=== PATIENT | female | born 1935 | race Caucasian/White ===

== ENCOUNTER 2016-09-27 08:43 | Emergency (ER) | payer OTHER ==
[~2016-09-27] VITALS: Ht 152.4 cm; Wt 54.4 kg
[~2016-09-27 08:43] MED LIST: ANTIVERT25 MG PO; CEPHALEXIN500 M1 PO; COMBIVENT1 ARO IH; LOMOTIL 0.025 M1 TA1 PO; MEDROL DOSEPAK4 MG PO; SYNTHROID,LEVO75 MCG PO; ZITHROMAX Z PA250 MG PO
[2016-09-27] MEDS ORDERED: ASPIRIN CHEWABL81 MG PO (08:51)
[2016-09-27 09:22] LABS: BASO # 0.1 10*3/uL (0.0-0.1); BASO % 3.1 % (0.0-1.0); EOS # 0.1 10*3/uL (0.0-0.4); EOS % 2.2 % (1.0-4.0); HEMATOCRIT 37.9 % (37.0-47.0); HEMOGLOBIN 11.8 g/dl (12.0-16.0); LYMPH % 29.6 % (27.0-41.0); MEAN CELL VOLUME 87.7 fl (81.0-99.0); MEAN CORPUSCULAR HGB 27.3 pg (27.0-31.0); MEAN CORPUSCULAR HGB CONC 31.1 g/dl (33.0-37.0); MEAN PLATELET VOLUME 11.3 fl (9.6-12.3); MONO # 0.4 10*3/uL (0.1-1.0); MONO % 11.2 % (3.0-9.0); NEUT # 1.7 10*3/uL (2.3-7.9); NEUT % 53.6 % (47.0-73.0); PLATELET COUNT AUTOMATED 201 10*3/uL (130-400); RED BLOOD COUNT 4.32 10*6/uL (4.10-5.10); RED CELL DISTRI WIDTH 13.4 % (0-14.5); WHITE BLOOD COUNT 3.2 10*3/uL (4.8-10.8)
[2016-09-27 09:30] LABS: PROTHROMBIN TIME 10.6 SECONDS (9.0-12.4)
[2016-09-27 09:40] LABS: ALBUMIN 3.4 gm/dl (3.1-4.5); ALKALINE PHOSPHATASE 76 U/L (45-117); BILIRUBIN, TOTAL 0.4 mg/dl (0.2-1.0); BUN 15 mg/dl (7-24); C-REACTIVE PROTEIN < 0.29 MG/DL (0-0.3); CARBON DIOXIDE 28 mmol/L (21-32); CHLORIDE 106 mmol/L (98-107); CKMB 1.4 ng/ml (0.5-3.6); CPK 63 U/L (26-192); EST GLOM FILT AFRICAN AMERICAN > 60 ml/min; GLUCOSE 82 mg/dL (65-99); MAGNESIUM 2.3 mg/dL (1.5-2.1); POTASSIUM 3.5 mmol/L (3.5-5.1); SGOT/AST 14 IU/L (3-35); SGPT/ALT 13 U/L (12-78); SODIUM 142 mmol/L (136-145); TOTAL PROTEIN 7.2 gm/dL (6.4-8.2); TROPONIN I < 0.015 ng/ml (<0.045)
[2016-09-27 10:09] LABS: BILIRUBIN NEGATIVE (NEGATIVE); BLOOD TRACE-INTACT (NEGATIVE); CLARITY SL CLOUDY (CLEAR); COLOR YELLOW (YELLOW); GLUCOSE NEGATIVE (NEGATIVE); KETONE NEGATIVE (NEGATIVE); LEUKO ESTERASE NEGATIVE (NEGATIVE); NITRITE NEGATIVE (NEGATIVE); PH 5.5 (5.0-9.0); PROTEIN NEGATIVE (NEGATIVE); UROBILINOGEN 0.2 E.U./dl (0.2-1.0)
[2016-09-27 10:29] LABS: BACTERIA 1+; MUCOUS 1+; URINE REFLEX COMMENT NO (NO); WAXY CAST TNTC
[2016-09-27] MEDS ORDERED: MOTION SICKNESS25 MG PO (11:05)
[2016-09-27 11:18] LABS: LA>2 REFLEX 2 HR DRAW NOW
[2016-09-27 11:27] VITALS: BP 141/69
== END 2016-09-27 11:32 | disposition home or self-care (01) ==
LOC: ED 08:43
PROVIDERS: Internal Medicine
DX: R42 Dizziness and giddiness (principal); Z79.82 Long term (current) use of aspirin

== ENCOUNTER → 2017-12-07 | Outpatient (CLI) | payer OTHER ==
[~2017-12-07] MED LIST changes: +ASPIRIN CHEWABL81 MG PO; +MOTION SICKNESS25 MG PO
== END | disposition home or self-care (01) ==
LOC: RAD 17:05
DX: I10 Essential (primary) hypertension (principal); R42 Dizziness and giddiness

== ENCOUNTER 2018-02-23 12:52 | Emergency (ER) | payer OTHER ==
[~2018-02-23] VITALS: Ht 165.1 cm; Wt 56.2 kg
--- NOTE | ~2018-02-23 | EKG ---
[place], [place] ELECTROCARDIOGRAM REPORT NAME: ARIADNE HUANG UNIT #: [id number] ROOM: DOCTOR: EPIPHANY DRAFT REPORT BIRTHDATE: [birth year] 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
[2018-02-23 14:19] VITALS: BP 140/70
[2018-02-23 15:01] LABS: BASO % 0.6 % (0.0-1.0); EOS % 0.2 % (1.0-4.0); HEMATOCRIT 35.6 % (37.0-47.0); HEMOGLOBIN 11.6 g/dl (12.0-16.0); LYMPH # 0.9 10*3/uL (1.3-4.4); LYMPH % 14.8 % (27.0-41.0); MEAN CORPUSCULAR HGB CONC 32.6 g/dl (33.0-37.0); MEAN PLATELET VOLUME 10.5 fl (9.6-12.3); MONO # 0.5 10*3/uL (0.1-1.0); MONO % 7.3 % (3.0-9.0); NEUT # 4.8 10*3/uL (2.3-7.9); NEUT % 76.9 % (47.0-73.0); PLATELET COUNT AUTOMATED 177 10*3/uL (130-400); RED CELL DISTRI WIDTH 13.3 % (0-14.5); WHITE BLOOD COUNT 6.3 10*3/uL (4.8-10.8)
[2018-02-23 15:14] LABS: ACT PARTIAL THROMBO TIME 23.6 SECONDS (19.5-32.1)
[2018-02-23 15:16] LABS: ALBUMIN 3.2 gm/dl (3.1-4.5); ALKALINE PHOSPHATASE 65 U/L (45-117); BUN 20 mg/dl (7-24); CHLORIDE 99 mmol/L (98-107); CREATININE 0.86 mg/dL (0.55-1.02); LIPASE 236 U/L (73-393); POTASSIUM 3.4 mmol/L (3.5-5.1); SGOT/AST 13 IU/L (3-35); SGPT/ALT 11 U/L (12-78); SODIUM 139 mmol/L (136-145); TOTAL PROTEIN 6.9 gm/dL (6.4-8.2)
[2018-02-23 15:21] LABS: TROPONIN I < 0.015 ng/ml (<0.045)
[2018-02-23 16:13] LABS: BILIRUBIN NEGATIVE (NEGATIVE); BLOOD NEGATIVE (NEGATIVE); CLARITY CLEAR (CLEAR); COLOR YELLOW (YELLOW); GLUCOSE NEGATIVE (NEGATIVE); KETONE NEGATIVE (NEGATIVE); LEUKO ESTERASE TRACE (NEGATIVE); NITRITE NEGATIVE (NEGATIVE); PH 5.5 (5.0-9.0); UROBILINOGEN 0.2 E.U./dl (0.2-1.0)
== END 2018-02-23 16:38 | disposition home or self-care (01) ==
LOC: ED 12:52
PROVIDERS: Nurse Practitioner Family
DX: R42 Dizziness and giddiness (principal); R79.1 Abnormal coagulation profile; Z79.82 Long term (current) use of aspirin

== ENCOUNTER 2018-04-18 14:59 | Inpatient (IN) | payer OTHER ==
[~2018-04-18] VITALS: Ht 152.4 cm; Wt 65.5 kg
--- NOTE | ~2018-04-18 | O ---
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 She has had rectal bleeding, bright blood per rectum and we have been concerned. PROCEDURE: Today's procedure therefore is panendoscopy and colonoscopy. PREMEDICATION: Propofol. SCOPE: Olympus forward-viewing gastroscope Q10 video. REPORT: After putting the patient in left lateral position and application of lubricant to the scope, the scope was introduced. Thereafter, under direct visualization, I advanced through the length of esophagus without difficulty. Esophagus, cervical, thoracic distally carefully examined. Gastric pouch was entered. Moderate size hiatal hernia was noticed. The stomach itself anatomically was axially rotated and therefore direct access from lesser curvature to the antrum is impractical and appropriate maneuvers was done. Antral biopsy obtained. GI reflection of the scope confirmed the findings. Air was suctioned out. The patient was extubated, tolerated the procedure well. IMPRESSION: Hiatal hernia, gastritis, axially rotated stomach access, moderate size hiatal hernia. PLAN AND DISCUSSION: There is no active bleeding in upper GI. Therefore, nonsteroidal anti-inflammatory was not playing an acute role in this. We are going to continue with PPI for symptomatology of dyspepsia. We are going to proceed with colonoscopy. GASTROENDOSCOPIC REPORT The patient has presented with lower GI bleed. Bright blood per rectum. The patient with a history of colonic carcinoma in the past, 2 decades ago, detail unknown. Today's procedure part of investigation is colonoscopy plus biopsy plus photographic series. PREMEDICATION: Propofol. SCOPE: Olympus forward-viewing colonoscope 10L video. REPORT: After putting the patient in left lateral position and application of lubricant to rectal pouch and digital examination, scope was introduced; thereafter, under direct visualization, advanced through the length of colon. [place], [place] OPERATIVE NOTE NAME: ARIADNE HUANG UNIT #: [id number] ROOM: 411 DOCTOR: NICHELLE LUIS,GLEN BIRTHDATE: [birth year] As I approached approximately 10 cm from rectal pouch there is a polypoid lesion, which appears to be pendular, broad-based with large fungating mushroomed out lesion, which is a part of the polyp and covering semi-lumen of the colon at that level. The lesion may harbor in situ carcinoma and it is large non polypectomy candidate through the snaring, multiple biopsies; however, obtained after photographic series. Scope was negotiated beyond this area. Diverticulosis noticed numerous fecaliths were noticed that were mobile. Detail anatomy beyond this area could not be safely pursued due to the chance of possible perforation. Therefore, the patient extubated, tolerated the procedure well. 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 PLAN AND DISCUSSION: We will make arrangement for CT scan to make sure this is not a true metastatic lesion. Otherwise, appropriate arrangements for rectal mass removal is going to be organized to surgery. GLEN STEWARD MD CM:OPRECORD:OPERATIVE NOTE 1726 1800 GLEN STEWARD MD 04/19/18 1801 interface
--- NOTE | ~2018-04-18 | CON ---
[place], [place] REPORT OF CONSULTATION NAME: ARIADNE HUANG UNIT #: [id number] ROOM: 411 DOCTOR: GLEN STEWARD MD BIRTHDATE: [birth year] DOS: 04/19/2018 GASTROENDOSCOPIC CONSULTATION HISTORY OF PRESENT ILLNESS: An 82-year-old gentle lady who has presented with multiple problems, among which was blood per rectum. The patient with a history of colonic cancer 20 years ago and she has been on the chemoradiation resection. History details are not available to me. However NOTE: DICTATION ENDS HERE. GLEN STEWARD MD CM:CONSTR:REPORT OF CONSULTATION 1719 04/20/18 0157 interface
--- NOTE | ~2018-04-18 | CON ---
[place], [place] REPORT OF CONSULTATION NAME: ARIADNE HUANG UNIT #: [id number] ROOM: 411 DOCTOR: GLEN STEWARD MD BIRTHDATE: [birth year] DOS: 04/19/2018 GASTROENDOSCOPIC REPORT HISTORY OF PRESENT ILLNESS: This is an 82-year-old patient who presented with multiple medical issues among which has been hematochezia and abdominal pain associated with cramp. We are concerned about a white blood cell 4.6, H and H of 11 and 36. Comprehensive metabolic panel, electrolyte balance, liver function test normal. H and H remained approximately the same. Comprehensive metabolic did not nearly change, borderline electrolyte balance was noticed. Thyroid studies normal. INR 1.1. PAST MEDICAL HISTORY: Vertigo. SOCIAL HISTORY: Social alcohol consumer. FAMILY HISTORY: Noncontributory. ALLERGIES: No known medications. HOME MEDICATIONS: Aspirin. REVIEW OF SYSTEMS: HEENT: Denies double vision or blurred vision. RESPIRATORY: Denies acute shortness of breath. CARDIOVASCULAR: Denies chest pain. DIGESTIVE SYSTEM: Nausea, vomiting, abdominal cramp or hematochezia. PHYSICAL EXAMINATION: VITAL SIGNS: Stable. HEENT: Head normocephalic, nontraumatic. Eyes: Pupils round and reactive. Mouth and buccal mucosa benign. NECK: Supple, no thyromegaly, no cervical lymphadenopathy. CHEST: Symmetric anatomy, no wheeze, no rhonchi. HEART: Normal sinus rhythm, no gallop, no murmur. ABDOMEN: Soft. No hepato-organomegaly. EXTREMITIES: No cyanosis, no pedal edema. NEUROLOGIC: Alert, fully oriented to time, place, and person. LABORATORY DATA: Reviewed, records reviewed. IMPRESSION: Presentation of acute abdominal pain throughout the afternoon. Abdominal cramp associated with bloody BM, history of nonsteroidal anti-inflammatory intake, vertigo, all consistent with active GI bleed. Concern is if the patient has ischemic bowel, otherwise differential as expected. They are going to keep any prophylactic anticoagulants untill the information regarding definition of etiology of GI bleed has been cleared. [place], [place] REPORT OF CONSULTATION NAME: ARIADNE HUANG UNIT #: [id number] ROOM: 411 DOCTOR: GLEN STEWARD MD BIRTHDATE: [birth year] GLEN STEWARD MD CM:CONSTR:REPORT OF CONSULTATION 1300 04/19/18 1944 interface
[2018-04-18 16:16] LABS: BASO # 0.1 10*3/uL (0.0-0.1); BASO % 1.1 % (0.0-1.0); EOS % 0.9 % (1.0-4.0); HEMOGLOBIN 11.3 g/dl (12.0-16.0); LYMPH # 1.1 10*3/uL (1.3-4.4); MEAN CELL VOLUME 92.1 fl (81.0-99.0); MEAN CORPUSCULAR HGB 28.9 pg (27.0-31.0); MEAN CORPUSCULAR HGB CONC 31.4 g/dl (33.0-37.0); MEAN PLATELET VOLUME 10.9 fl (9.6-12.3); MONO # 0.4 10*3/uL (0.1-1.0); MONO % 8.6 % (3.0-9.0); NEUT % 66.2 % (47.0-73.0); PLATELET COUNT AUTOMATED 168 10*3/uL (130-400); RED BLOOD COUNT 3.91 10*6/uL (4.10-5.10); RED CELL DISTRI WIDTH 13.8 % (0-14.5); WHITE BLOOD COUNT 4.6 10*3/uL (4.8-10.8)
[2018-04-18 16:32] LABS: ALBUMIN 3.2 gm/dl (3.1-4.5); ALKALINE PHOSPHATASE 68 U/L (45-117); BUN 17 mg/dl (7-24); CHLORIDE 110 mmol/L (98-107); POTASSIUM 4.4 mmol/L (3.5-5.1); SGOT/AST 14 IU/L (3-35); SGPT/ALT 15 U/L (12-78); SODIUM 145 mmol/L (136-145); TOTAL PROTEIN 6.6 gm/dL (6.4-8.2)
[2018-04-18 20:00] VITALS: BP 159/72
[2018-04-19] VITALS (9 sets, daily range): BP systolic 128–162; BP diastolic 59–90
[2018-04-19 02:23] LABS: BILIRUBIN NEGATIVE (NEGATIVE); BLOOD NEGATIVE (NEGATIVE); CLARITY CLEAR (CLEAR); COLOR YELLOW (YELLOW); GLUCOSE NEGATIVE (NEGATIVE); KETONE NEGATIVE (NEGATIVE); LEUKO ESTERASE NEGATIVE (NEGATIVE); NITRITE NEGATIVE (NEGATIVE); PH 6.5 (5.0-9.0); SPECIFIC GRAVITY <= 1.005 (1.005-1.030); UROBILINOGEN 0.2 E.U./dl (0.2-1.0)
[2018-04-19 02:44] LABS: BACTERIA TRACE; RBC 0-2 rbc/hpf (0-2)
[2018-04-19 06:26] LABS: BASO # 0.1 10*3/uL (0.0-0.1); BASO % 1.2 % (0.0-1.0); EOS # 0.1 10*3/uL (0.0-0.4); EOS % 0.9 % (1.0-4.0); HEMATOCRIT 37.1 % (37.0-47.0); HEMOGLOBIN 11.5 g/dl (12.0-16.0); LYMPH # 1.3 10*3/uL (1.3-4.4); LYMPH % 21.9 % (27.0-41.0); MEAN CELL VOLUME 91.8 fl (81.0-99.0); MEAN CORPUSCULAR HGB 28.5 pg (27.0-31.0); MEAN PLATELET VOLUME 11.3 fl (9.6-12.3); MONO # 0.5 10*3/uL (0.1-1.0); NEUT # 3.9 10*3/uL (2.3-7.9); NEUT % 67.8 % (47.0-73.0); PLATELET COUNT AUTOMATED 187 10*3/uL (130-400); RED BLOOD COUNT 4.04 10*6/uL (4.10-5.10); RED CELL DISTRI WIDTH 13.6 % (0-14.5); WHITE BLOOD COUNT 5.8 10*3/uL (4.8-10.8)
[2018-04-19 07:03] LABS: ALBUMIN 3.2 gm/dl (3.1-4.5); BUN 13 mg/dl (7-24); CHLORIDE 110 mmol/L (98-107); CHOLESTEROL 159 mg/dL (<200); PHOSPHOROUS 3.3 mg/dL (2.5-4.9); POTASSIUM 3.8 mmol/L (3.5-5.1); SODIUM 144 mmol/L (136-145); TOTAL PROTEIN 6.8 gm/dL (6.4-8.2); TRIGLYCERIDES 94 mg/dl (<150); VLDL CHOLESTEROL 19 mg/dL (6-40)
[2018-04-19 07:13] LABS: ALKALINE PHOSPHATASE 70 U/L (45-117); CREATININE 0.82 mg/dL (0.55-1.02); HDL CHOLESTEROL 64 mg/dl (40-60); IRON 68 ug/dL (50-170); LDL CHOLESTEROL 76 mg/dL (9-159); SGOT/AST 15 IU/L (3-35); SGPT/ALT 15 U/L (12-78); TOTAL IRON BINDING CAPACITY 260 ug/dl (250-450)
[2018-04-19 07:36] LABS: VITAMIN D, 25-HYDROXY 37.1 ng/mL (30-100)
[2018-04-20] VITALS: BP 138/63
[2018-04-20 08:00] VITALS: BP 140/62
== END 2018-04-20 09:17 | disposition home or self-care (01) | DRG 393 ==
LOC: LAB 14:59 → EDSTATUS 15:00 → 4E 15:01
PROVIDERS: Student in an Organized Health Care Education/Training Program; ADMIT Internal Medicine
DX: K62.1 Rectal polyp (principal); K57.31 Diverticulosis of large intestine without perforation or abscess with bleeding; K29.71 Gastritis, unspecified, with bleeding; E44.0 Moderate protein-calorie malnutrition; D72.819 Decreased white blood cell count, unspecified; N18.3 Chronic kidney disease, stage 3 (moderate); K44.9 Diaphragmatic hernia without obstruction or gangrene; D64.9 Anemia, unspecified; Z85.038 Personal history of other malignant neoplasm of large intestine; Z87.891 Personal history of nicotine dependence; Z79.899 Other long term (current) drug therapy; Z79.82 Long term (current) use of aspirin; Z79.1 Long term (current) use of non-steroidal anti-inflammatories (NSAID); Z68.28 Body mass index [BMI] 28.0-28.9, adult

== ENCOUNTER → 2018-12-22 | Outpatient (CLI) | payer OTHER | END | disposition home or self-care (01) | LOC: LAB 11:26 → RAD 11:26 | DX: K44.9 Diaphragmatic hernia without obstruction or gangrene (principal); J44.9 Chronic obstructive pulmonary disease, unspecified; I10 Essential (primary) hypertension ==

== ENCOUNTER 2022-08-28 16:37 | Inpatient (IN) | payer MEDICARE, OTHER ==
[~2022-08-28] VITALS: Ht 160 cm; Wt 52.4 kg
[~2022-08-28 16:37] MED LIST changes: +CLARITIN10 MG PO; +DONEPEZIL HYDROC5 MG PO; +FUROSEMIDE40 MG PO; +LEVOTHYROXINE25 MCG PO; +MECLIZINE HCL25 M2 PO; +TAB-A-VITE TA400 MCG PO; +TOPROL XL25 MG PO; +VITAMIN D3125 MCG PO; +ZESTRIL10 MG PO
[2022-08-28 16:46] VITALS: BP 109/58
[2022-08-28 17:13] LABS: BASO % 0.5 % (0.0-1.0); EOS # 0.1 10*3/uL (0.0-0.4); EOS % 0.9 % (1.0-4.0); HEMATOCRIT 35.8 % (37.0-47.0); LYMPH # 0.8 10*3/uL (1.3-4.4); LYMPH % 13.9 % (27.0-41.0); MEAN CELL VOLUME 85.2 fl (81.0-99.0); MEAN CORPUSCULAR HGB CONC 30.4 g/dl (33.0-37.0); MEAN PLATELET VOLUME 10.4 fl (9.6-12.3); MONO # 0.8 10*3/uL (0.1-1.0); MONO % 13.7 % (3.0-9.0); NEUT # 4.1 10*3/uL (2.3-7.9); NEUT % 70.8 % (47.0-73.0); PLATELET COUNT AUTOMATED 235 10*3/uL (130-400); WHITE BLOOD COUNT 5.8 10*3/uL (4.8-10.8)
[2022-08-28 17:41] LABS: ALKALINE PHOSPHATASE 125 U/L (46-116); BUN 19 mg/dl (9-23); CHLORIDE 103 mmol/L (98-107); POTASSIUM 3.7 mmol/L (3.4-5.1); TOTAL PROTEIN 6.3 gm/dL (6.0-8.0)
[2022-08-28 17:43] LABS: SGPT/ALT < 7 U/L (10-49)
[2022-08-28 19:15] VITALS: BP 109/58; BP 114/51
[2022-08-28] MEDS ORDERED: ARICEPT5 M1 PO (20:39)
[2022-08-28] MEDS ORDERED: LASIX40 MG PO (20:42)
[2022-08-28] MEDS ORDERED: MECLIZINE HCL25 M2 PO (20:43)
[2022-08-28] MEDS ORDERED: METOPROLOL SUCC25 M2 PO (20:44)
[2022-08-28] MEDS ORDERED: DAILY VALUE1 EACH PO (20:45)
[2022-08-28] MEDS ORDERED: SYNTHROID25 MCG PO (20:46)
[2022-08-28] MEDS ORDERED: TYLENOL325 M1 PO (20:47)
[2022-08-28] MEDS ORDERED: VITAMIN D325 MCG PO (20:49)
[2022-08-28 21:49] VITALS: BP 111/50
[2022-08-29 01:00] VITALS: BP 108/57
[2022-08-29 05:09] VITALS: BP 110/61; BP 124/60
[2022-08-29 06:00] LABS: BASO # 0.1 10*3/uL (0.0-0.1); EOS # 0.1 10*3/uL (0.0-0.4); EOS % 1.4 % (1.0-4.0); HEMATOCRIT 32.8 % (37.0-47.0); LYMPH % 17.5 % (27.0-41.0); MEAN CELL VOLUME 85.4 fl (81.0-99.0); MEAN CORPUSCULAR HGB CONC 30.5 g/dl (33.0-37.0); MEAN PLATELET VOLUME 10.9 fl (9.6-12.3); MONO # 0.8 10*3/uL (0.1-1.0); MONO % 13.1 % (3.0-9.0); NEUT # 3.8 10*3/uL (2.3-7.9); NEUT % 66.7 % (47.0-73.0); PLATELET COUNT AUTOMATED 214 10*3/uL (130-400); RED BLOOD COUNT 3.84 10*6/uL (4.10-5.10); RED CELL DISTRI WIDTH 16.2 % (0-14.5); WHITE BLOOD COUNT 5.7 10*3/uL (4.8-10.8)
[2022-08-29 07:19] LABS: ALKALINE PHOSPHATASE 109 U/L (46-116); BUN 16 mg/dl (9-23); CHLORIDE 105 mmol/L (98-107); POTASSIUM 4.1 mmol/L (3.4-5.1); SGPT/ALT 9 U/L (10-49); TOTAL PROTEIN 5.9 gm/dL (6.0-8.0)
[2022-08-29 09:45] VITALS: BP 127/56
[2022-08-29 12:00] VITALS: BP 130/63
[2022-08-29 16:00] VITALS: BP 115/73
[2022-08-29 20:00] VITALS: BP 129/53
[2022-08-30] VITALS: BP 113/61
[2022-08-30 06:35] LABS: BASO % 0.5 % (0.0-1.0); EOS % 0.5 % (1.0-4.0); HEMATOCRIT 33.4 % (37.0-47.0); LYMPH # 0.8 10*3/uL (1.3-4.4); LYMPH % 10.2 % (27.0-41.0); MEAN CELL VOLUME 85.6 fl (81.0-99.0); MEAN CORPUSCULAR HGB 25.9 pg (27.0-31.0); MEAN CORPUSCULAR HGB CONC 30.2 g/dl (33.0-37.0); MEAN PLATELET VOLUME 10.2 fl (9.6-12.3); MONO # 0.9 10*3/uL (0.1-1.0); MONO % 11.5 % (3.0-9.0); NEUT # 5.7 10*3/uL (2.3-7.9); PLATELET COUNT AUTOMATED 198 10*3/uL (130-400); RED CELL DISTRI WIDTH 16.4 % (0-14.5); WHITE BLOOD COUNT 7.5 10*3/uL (4.8-10.8)
[2022-08-30 07:18] LABS: ALKALINE PHOSPHATASE 97 U/L (46-116); BUN 15 mg/dl (9-23); CHLORIDE 105 mmol/L (98-107); POTASSIUM 4.3 mmol/L (3.4-5.1); SGPT/ALT 8 U/L (10-49); THYROID STIM HORMONE (HS) 1.635 uIU/ml (0.550-4.780); TOTAL PROTEIN 5.8 gm/dL (6.0-8.0)
[2022-08-30 08:00] VITALS: BP 112/61
[2022-08-30 12:00] VITALS: BP 103/55
[2022-08-30 16:00] VITALS: BP 100/46
[2022-08-30 20:00] VITALS: BP 100/46
[2022-08-31] VITALS: BP 108/52
[2022-08-31 06:23] LABS: BASO % 0.6 % (0.0-1.0); EOS # 0.1 10*3/uL (0.0-0.4); HEMATOCRIT 32.2 % (37.0-47.0); LYMPH # 0.8 10*3/uL (1.3-4.4); LYMPH % 12.5 % (27.0-41.0); MEAN CELL VOLUME 85.9 fl (81.0-99.0); MEAN CORPUSCULAR HGB 26.1 pg (27.0-31.0); MEAN CORPUSCULAR HGB CONC 30.4 g/dl (33.0-37.0); MEAN PLATELET VOLUME 10.6 fl (9.6-12.3); MONO # 0.7 10*3/uL (0.1-1.0); MONO % 11.5 % (3.0-9.0); NEUT # 4.6 10*3/uL (2.3-7.9); NEUT % 74.1 % (47.0-73.0); PLATELET COUNT AUTOMATED 223 10*3/uL (130-400); RED BLOOD COUNT 3.75 10*6/uL (4.10-5.10); RED CELL DISTRI WIDTH 16.4 % (0-14.5); WHITE BLOOD COUNT 6.3 10*3/uL (4.8-10.8)
[2022-08-31 06:36] LABS: POTASSIUM 3.5 mmol/L (3.4-5.1); TOTAL PROTEIN 5.8 gm/dL (6.0-8.0)
[2022-08-31 08:00] VITALS: BP 106/56
[2022-08-31 12:00] VITALS: BP 104/55
== END 2022-08-31 15:17 | DRG 536 ==
LOC: ED 16:37 → EDHOLD 20:32 → 4E 20:32
PROVIDERS: Internal Medicine; ADMIT Internal Medicine; ATTEND Internal Medicine
DX: S72.114A Nondisplaced fracture of greater trochanter of right femur, initial encounter for closed fracture (principal); E44.0 Moderate protein-calorie malnutrition; I50.32 Chronic diastolic (congestive) heart failure; F03.90 Unspecified dementia, unspecified severity, without behavioral disturbance, psychotic disturbance, mood disturbance, and anxiety; K21.9 Gastro-esophageal reflux disease without esophagitis; R26.89 Other abnormalities of gait and mobility; K44.9 Diaphragmatic hernia without obstruction or gangrene; N18.30 Chronic kidney disease, stage 3 unspecified; Z79.1 Long term (current) use of non-steroidal anti-inflammatories (NSAID); Z79.899 Other long term (current) drug therapy; Z68.20 Body mass index [BMI] 20.0-20.9, adult; Y93.89 Activity, other specified; Y92.89 Other specified places as the place of occurrence of the external cause; Y99.8 Other external cause status

== ENCOUNTER → 2022-09-08 | Outpatient (CLI) | payer MEDICARE, OTHER ==
[~2022-09-08] MED LIST changes: +ARICEPT5 M1 PO; +DAILY VALUE1 EACH PO; +LASIX40 MG PO; +METOPROLOL SUCC25 M2 PO; +SYNTHROID25 MCG PO; +TYLENOL325 M1 PO; +VITAMIN D325 MCG PO
== END | disposition home or self-care (01) ==
LOC: ORTHO 00:41
PROVIDERS: ATTEND Orthopaedic Surgery
DX: S72.114D Nondisplaced fracture of greater trochanter of right femur, subsequent encounter for closed fracture with routine healing (principal); X58.XXXD Exposure to other specified factors, subsequent encounter